=== PATIENT | female | born 1955 | race Caucasian/White ===

== ENCOUNTER 2019-04-08 11:25 | Inpatient (IN) | payer OTHER, MEDICAID ==
[~2019-04-08] VITALS: Ht 162.6 cm; Wt 71.2 kg
[2019-04-08 11:30] VITALS: BP_SYST 158
--- NOTE | 2019-04-08 11:30 | NUR ---
Patient to ER bed 8 to gown for evaluation. Side rails up.
--- NOTE | 2019-04-08 11:45 | NUR ---
pt arrives from [facility]. Pt arrives via BLS for uncontrolled shivering and diarrhea x 4 today. Pt is AAO x 2. Pt is due for HD today. HD access is on the right femoral. boat master placed. Will conitnue to monitor.
--- NOTE | 2019-04-08 11:48 | NUR ---
ER at bedside examining patient.
[2019-04-08] MEDS ORDERED: DIPHENOXYLATE HCL/ATROP SULF 2.5 MG TAB PO ONE (12:15)
[2019-04-08] MEDS ORDERED: KETOROLAC TROMETHAMINE 30 MG VIAL IVP ONE (12:15)
--- NOTE | 2019-04-08 13:00 | NUR ---
pt getting a CXR at the bedside.
[2019-04-08 13:18] LABS: BASOPHILS # (AUTO) 0.1 K/uL (0.0-0.2); BASOPHILS % (AUTO) 1.4 % (0.0-2.0); EOSINOPHILS # (AUTO) 0.3 K/uL (0.0-0.4); EOSINOPHILS % (AUTO) 3.3 % (0.0-4.0); HEMATOCRIT 31.9 % (36-48); HEMOGLOBIN 10.4 g/dL (12.0-16.0); LYMPHOCYTES # (AUTO) 2.8 K/uL (1.0-5.5); LYMPHOCYTES % (AUTO) 30.7 % (20.5-51.5); MEAN CORPUSCULAR HEMOGLOBIN 34 pg (27-31); MEAN CORPUSCULAR HGB CONC 33 % (32-36); MEAN CORPUSCULAR VOLUME 103 fL (79.0-98.0); MONOCYTES # (AUTO) 0.7 K/uL (0.0-1.0); MONOCYTES % (AUTO) 8.3 % (1.7-9.3); NEUTROPHILS # (AUTO) 5.1 K/uL (1.8-7.7); NEUTROPHILS % (AUTO) 56.3 % (40.0-70.0); PLATELET COUNT (AUTO) 316 K/uL (130-430); RED BLOOD CELL COUNT(AUTO) 3.08 MIL/uL (4.2-6.2); WHITE BLOOD COUNT (AUTO) 9.1 K/uL (4.8-10.8)
[2019-04-08 13:29] LABS: CALCIUM 8.9 mg/dL (8.4-11.0)
--- NOTE | 2019-04-08 13:30 | NUR ---
# 22 gauge angiocath placed to left bicep. Use of asceptic technique. Opsite placed over site. Blood return noted. Blood for lab drawn from site. Flushed with 10 cc of normal saline. No evidence of infiltration noted. Patient tolerated well.
[2019-04-08 13:32] LABS: CREATININE 8.07 mg/dL (0.55-1.30); POTASSIUM 6.4 mmol/L (3.5-5.1); PROTHROMBIN TIME 9.8 SECS (9.5-12.5)
--- NOTE | 2019-04-08 13:40 | NUR ---
medicated the pt w/ Toradol and Lomitol, per MD order.
[2019-04-08 13:45] LABS: ALBUMIN 3.3 g/dL (3.4-4.8); TOTAL BILIRUBIN 0.3 mg/dL (0.0-1.0)
--- NOTE | 2019-04-08 16:00 | NUR ---
# 24 gauge angiocath placed to left wrist. Use of asceptic technique. Opsite placed over site. Blood return noted. Blood for lab drawn from site. Flushed with 10 cc of normal saline. No evidence of infiltration noted. Patient tolerated well.
[2019-04-08] MEDS ORDERED: ESCI10TA PO (16:30)
[2019-04-08] MEDS ORDERED: VIT B PO (16:30)
[2019-04-08] MEDS ORDERED: ALPR0.5T PO (16:30)
[2019-04-08] MEDS ORDERED: METO50TA7 PO (16:30)
[2019-04-08] MEDS ORDERED: VITC PO (16:30)
[2019-04-08] MEDS ORDERED: SEVE800T8 PO (16:30)
[2019-04-08] MEDS ORDERED: ASPI-1153 PO (16:30)
[2019-04-08] MEDS ORDERED: FOLI-43 PO (16:30)
[2019-04-08] MEDS ORDERED: ALLO100T91 PO (16:30)
[2019-04-08] MEDS ORDERED: INSU100V11 SQ (16:30)
--- NOTE | 2019-04-08 16:30 | NUR ---
Dr. Bejarano speaking w/ the family and pt at the bedside.
--- NOTE | 2019-04-08 17:00 | NUR ---
MD ROUNDS SEEN BY DR. BOSCH AT BEDSIDE. Addendum: 04/08/19 at 1925 by Monique Barton RN TIME SEEN BY DR. BOSCH IS AT 1900 AND NOT 1700.
--- NOTE | 2019-04-08 17:00 | NUR ---
Medication reconciliation completed with information provided by pt's medical record. Any prior medication reconciliation on file was reviewed and corrected.
--- NOTE | 2019-04-08 17:13 | NUR ---
pt will be admitted under the care of Dr. Garcia, tele obs
[2019-04-08] MEDS ORDERED: DIPHENOXYLATE HCL/ATROP SULF 2.5 MG TAB PO PRN (17:15)
[2019-04-08 17:30] VITALS: BP_SYST 120
--- NOTE | 2019-04-08 17:30 | NUR ---
ADMISSION NOTE Received patient from ER via robbie, received report from CLEMENT HARDY. Patient admitted with diagnosis of FEVER, WEAKNESS, HYPERKALEMIA. Patient oriented to hospital routine, call light, toileting and safety-patient verbalized understanding.
--- NOTE | 2019-04-08 17:49 | NUR ---
Patient will be admitted to care of Dr. Garcia. Admitted to tele obs unit. Will go to room 119-a. Belongings list completed. Complete and up to date summary report printed. SBAR report to be given at bedside with opportunity for questions. Bedside report given to Neymar HARDY. IV is on the left wrist 24g patent and infusing well.
[2019-04-08 18:00] VITALS: BP_SYST 120
--- NOTE | 2019-04-08 18:27 | NUR ---
notes- pt in bed, awake, alert confused. family at bedside. denies any pain or discomfort. has mild tremors on her both arms at this time. has right groin dialysis access, dressing dry and intact. pt is unable to ambulate. Oriented to call light use. will monitor.
--- NOTE | 2019-04-08 18:31 | NUR ---
Nephro consult called: for Dr. Trotter, regarding hemodialysis, ordered by Dr. Garcia, spoke with
--- NOTE | 2019-04-08 19:30 | NUR ---
OPENING NOTE RECEIVED CARE OF PT AND SBAR REPORT. PT IS AWAKE AND CONFUSED, RESTING IN BED. PT'S DAUGHTER IS AT BEDSIDE. PT DENIES PAIN AT THIS TIME. BREATHING IS EVEN AND UNLABORED TO ROOM AIR. POC DISCUSSED WITH PT AND PT'S DAUGHTER. NO S/S OF ACUTE DISTRESS. SAFETY PRECAUTIONS ARE IN PLACE: BED IS LOCKED IN LOWEST POSITION, SIDE RAILS UP X3, BED ALARM ON, CALL LIGHT IS WITH PT. WILL CONT TO MONITOR.
[2019-04-08 20:00] VITALS: BP_SYST 126
[2019-04-08] MEDS: cefTRIAXone 1 GM IVPB PREMIX 50 ML IV SCH (20:48)
--- NOTE | 2019-04-08 20:48 | NUR ---
ROCEPHIN SCHEDULED ROCEPHIN ADMINISTERED ORDERED. NO S/S OF ADVERSE REACTION NOTED.
[2019-04-08] MEDS ORDERED: LORazepam 2 MG/ML VIAL IVP PRN (23:15)
--- NOTE | 2019-04-08 23:25 | NUR ---
AGITATION/ATIVAN ATIVAN 1 MG IVP ADMINISTERED FOR PT'S AGITATION ORDERED PRN. MEDICATION AND POTENTIAL SIDE EFFECTS EXPLAINED TO PT. PT CONFUSED. PT RECEIVING DIALYSIS AT THIS TIME. SAFETY PRECAUTIONS MAINTAINED. WILL MONITOR.
[2019-04-08] MEDS ORDERED: HEPARIN SODIUM,PORCINE 5000 UNITS/ML VIAL ONE (23:46)
--- NOTE | 2019-04-09 00:06 | NUR ---
RESTING PT RESTING IN BED, NO S/S OF ACUTE DISTRESS, BREATHING IS UNLABORED TO ROOM AIR. NO SIGN OF PAIN OR DISCOMFORT. SAFETY PRECAUTIONS ARE IN PLACE. CLOSE TO NURSES STATION. BED ALARM IS ON. WILL MONITOR. Addendum: 04/10/19 at 0412 by Iman Mckeon RN WRONG DATE. PLEASE DISREGARD.
[2019-04-09 00:26] VITALS: BP_SYST 102
--- NOTE | 2019-04-09 01:30 | NUR ---
DIALYSIS FINISHED 2 L OUT. PT TOLERATED WELL. VSS.
--- NOTE | 2019-04-09 03:40 | NUR ---
RESTING PT RESTING IN BED, NO S/S OF ACUTE DISTRESS, BREATHING IS UNLABORED TO ROOM AIR. NO SIGN OF PAIN OR DISCOMFORT. SAFETY PRECAUTIONS ARE IN PLACE. CLOSE TO NURSES STATION. BED ALARM IS ON. WILL MONITOR.
--- NOTE | 2019-04-09 06:00 | NUR ---
REFUSING IV START PT REFUSING TO HAVE IV STARTED. PT ATTEMPTS TO HIT AND KICK WHEN APPROACHED. EDUCATION PROVIDED REGARDING IMPORTANCE OF IV. PT STATES, "I DON'T NEED IT!". WILL CONTINUE REINFORCE TEACHING.
--- NOTE | 2019-04-09 06:29 | NUR ---
CLOSING NOTE PT IS AWAKE AND CONFUSED, RESTING IN BED. PT DENIES PAIN AT THIS TIME. BREATHING IS EVEN AND UNLABORED TO ROOM AIR. NO S/S OF ACUTE DISTRESS. SAFETY PRECAUTIONS ARE IN PLACE: BED IS LOCKED IN LOWEST POSITION, SIDE RAILS UP X3, BED ALARM ON, CALL LIGHT IS WITH PT. WILL ENDORSE PT CARE TO DAY SHIFT RN.
[2019-04-09 06:37] LABS: BASOPHILS # (AUTO) 0.1 K/uL (0.0-0.2); BASOPHILS % (AUTO) 1.5 % (0.0-2.0); EOSINOPHILS # (AUTO) 0.2 K/uL (0.0-0.4); HEMOGLOBIN 9.4 g/dL (12.0-16.0); LYMPHOCYTES # (AUTO) 2.3 K/uL (1.0-5.5); LYMPHOCYTES % (AUTO) 38.1 % (20.5-51.5); MEAN CORPUSCULAR HEMOGLOBIN 34 pg (27-31); MEAN CORPUSCULAR HGB CONC 33 % (32-36); MEAN CORPUSCULAR VOLUME 103 fL (79.0-98.0); MONOCYTES # (AUTO) 0.7 K/uL (0.0-1.0); MONOCYTES % (AUTO) 11.1 % (1.7-9.3); NEUTROPHILS # (AUTO) 2.8 K/uL (1.8-7.7); NEUTROPHILS % (AUTO) 45.3 % (40.0-70.0); PLATELET COUNT (AUTO) 249 K/uL (130-430); RED BLOOD CELL COUNT(AUTO) 2.73 MIL/uL (4.2-6.2); RED CELL DISTRIBUTION WIDTH 15.8 % (9.0-15.0); WHITE BLOOD COUNT (AUTO) 6.2 K/uL (4.8-10.8)
[2019-04-09 07:22] LABS: ALBUMIN 3.1 g/dL (3.4-4.8); CALCIUM 8.4 mg/dL (8.4-11.0); CREATININE 6.25 mg/dL (0.55-1.30); PHOSPHORUS 7.1 mg/dL (2.7-4.5); POTASSIUM 4.8 mmol/L (3.5-5.1); TOTAL BILIRUBIN 0.3 mg/dL (0.0-1.0)
[2019-04-09 08:00] VITALS: BP_SYST 168
--- NOTE | 2019-04-09 08:00 | NUR ---
Note Pt sitting up in bed eating her breakfast independently at this time. No SOB/resp distress or pain/discomfort noted at this time. Pt will not let RN start an IV at this time, pushes RN away and states she wants to be left alone. Tele unit attached and intact at this time. Pt next to nurses' station for close observation for needs and care. Call light within reach.
[2019-04-09] MEDS: INSULIN GLARGINE 100 UNITS/ML 10 ML VIAL SQ SCH (08:15)
[2019-04-09] MEDS ORDERED: SEVELAMER CARBONATE 800 MG TABLET PO ONE (08:15)
[2019-04-09] MEDS ORDERED: CITALOPRAM HYDROBROMIDE 20 MG TABLET PO SCH (08:15)
[2019-04-09] MEDS ORDERED: ALLOPURINOL 100 MG TABLET (ZYLOPRIM) PO ONE (08:15)
[2019-04-09] MEDS ORDERED: ALPRAZolam 0.25 MG TABLET PO ONE (08:15)
[2019-04-09] MEDS ORDERED: METOPROLOL SUCCINATE 50 MG TAB.SR.24H (TOPROL XL) PO ONE (08:15)
[2019-04-09] MEDS ORDERED: FOLIC ACID 1 MG TABLET PO ONE (08:15)
[2019-04-09] MEDS ORDERED: CITALOPRAM HYDROBROMIDE 20 MG TABLET PO ONE (08:15)
[2019-04-09] MEDS ORDERED: ASPIRIN 81 MG TABLET(ECOTRIN) PO ONE (08:15)
[2019-04-09] MEDS ORDERED: INSULIN GLARGINE 100 UNITS/ML 10 ML VIAL SQ ONE (08:30)
[2019-04-09] MEDS: CITALOPRAM HYDROBROMIDE 20 MG TABLET PO SCH (08:52)
[2019-04-09] MEDS: FOLIC ACID 1 MG TABLET PO SCH (08:53)
[2019-04-09] MEDS: ALLOPURINOL 100 MG TABLET (ZYLOPRIM) PO SCH (08:53)
[2019-04-09] MEDS: ALPRAZolam 0.25 MG TABLET PO SCH (08:54)
[2019-04-09] MEDS: ASPIRIN 81 MG TABLET(ECOTRIN) PO SCH (08:54)
[2019-04-09] MEDS ORDERED: ALPRAZolam 0.25 MG TABLET PO SCH (09:00)
--- NOTE | 2019-04-09 09:58 | NUR ---
Nutrition Update Husam Scale 15 noted. Pt admitted for fever, weakness, hyperkalemia. Diet: CCHO standard carb-60 gm, renal BMI: 26.8 kg/m2 RD to follow per nutrition care standards.
--- NOTE | 2019-04-09 10:40 | NUR ---
Note Pt's daughter at bedside and update on pt's status given. Notified pt's daughter Cybrina Marin that pt will not let RN start a new IV and is aggressive when staff needs to do hygiene care and take vital signs. Pt drowsy and sleepy at this time. Pt's daughter left the bedside and stated staff could call her at any time for pt or MD tests and procedures. No needs noted at this time. Call light within reach.
[2019-04-09 12:15] VITALS: BP_SYST 144
--- NOTE | 2019-04-09 12:30 | NUR ---
Note Pt resting in bed - sleeping. No needs noted. Call light within reach.
--- NOTE | 2019-04-09 16:05 | NUR ---
Note Pt is anuric - no voiding noted all shift.
[2019-04-09 16:39] VITALS: BP_SYST 129
[2019-04-09] MEDS: SEVELAMER CARBONATE 800 MG TABLET PO SCH (17:31)
--- NOTE | 2019-04-09 18:10 | NUR ---
Note Pt sitting up in bed eating her dinner. Pt was checked on q1' and PRN all shift for needs and care. Pt's daughter Ranjit has been at bedside most of the afternoon. No SOB/resp distress or pain/discomfort noted at this time. Pt still will not let RN start new IV all shift. No needs noted at this time. Call light within reach.
--- NOTE | 2019-04-09 19:30 | NUR ---
OPENING NOTE RECEIVED CARE OF PT AND SBAR REPORT. PT IS AWAKE AND CONFUSED, RESTING IN BED. PT DENIES PAIN AT THIS TIME. BREATHING IS EVEN AND UNLABORED TO ROOM AIR. NO S/S OF ACUTE DISTRESS. PT REFUSES TO HAVE IV STARTED. SAFETY PRECAUTIONS ARE IN PLACE: BED IS LOCKED IN LOWEST POSITION, SIDE RAILS UP X3, BED ALARM ON, CALL LIGHT IS WITH PT, CLOSE TO NURSES STATION. WILL CONT TO MONITOR.
[2019-04-09 20:00] VITALS: BP_SYST 138
[2019-04-09] MEDS: cefTRIAXone 1 GM IVPB PREMIX 50 ML IV SCH (20:24)
[2019-04-09] MEDS: METOPROLOL SUCCINATE 50 MG TAB.SR.24H (TOPROL XL) PO SCH (20:26)
--- NOTE | 2019-04-09 20:26 | NUR ---
MED PASS PT AGREEABLE TO TAKING TOPROL MEDICATION. PT SWALLOWED MEDICATION WITH NO PROBLEM. VSS. MEDICATION AND POTENTIAL SIDE EFFECTS DISCUSSED, PT CONFUSED. NO S/S OF ACUTE DISTRESS. SAFETY MAINTAINED. WILL MONITOR.
--- NOTE | 2019-04-09 22:15 | NUR ---
RN ROUNDS: PT AWAKE IN BED WATCHING TELEVISION. PT CALM AT THIS TIME. NO S/S OF DISTRESS. PT DENIES PAIN AT THIS TIME. SAFETY AND FALL PRECAUTIONS ARE IN PLACE. CALL LIGHT IS WITH PT. WILL CONT TO MONITOR.
[2019-04-10 00:18] VITALS: BP_SYST 134
--- NOTE | 2019-04-10 02:40 | NUR ---
SLEEPING PT RESTING IN BED, NO S/S OF ACUTE DISTRESS, BREATHING IS EVEN AND UNLABORED. PT APPEARS COMFORTABLE. SAFETY PRECAUTIONS MAINTAINED. WILL MONITOR.
--- NOTE | 2019-04-10 04:15 | NUR ---
SLEEPING PT RESTING IN BED, NO S/S OF ACUTE DISTRESS, BREATHING IS EVEN AND UNLABORED. PT APPEARS COMFORTABLE. SAFETY PRECAUTIONS MAINTAINED. WILL MONITOR.
[2019-04-10] MEDS: INSULIN GLARGINE 100 UNITS/ML 10 ML VIAL SQ SCH (06:20)
--- NOTE | 2019-04-10 06:20 | NUR ---
REFUSED BLOOD SUGAR CHECK/LANTUS DESPITE EDUCATION. PT PUT THE BLANKET OVER HER HEAD AND STATED, "NO!"
--- NOTE | 2019-04-10 06:58 | NUR ---
CLOSING NOTE PT IS RESTING IN BED CONFUSED.PT DENIES PAIN AT THIS TIME. BREATHING IS EVEN AND UNLABORED TO ROOM AIR. NO S/S OF ACUTE DISTRESS. SAFETY PRECAUTIONS ARE IN PLACE: BED IS LOCKED IN LOWEST POSITION, SIDE RAILS UP X3, BED ALARM ON, CALL LIGHT IS WITH PT. WILL ENDORSE PT CARE TO DAY SHIFT RN.
[2019-04-10 07:32] LABS: CALCIUM 8.4 mg/dL (8.4-11.0)
[2019-04-10 07:35] VITALS: BP_SYST 147
--- NOTE | 2019-04-10 07:35 | NUR ---
Opening note patient resting in bed, a/o1- reoriented to place, time and event, patient denies pain, assessment complete, right groin permacath dressing clean, dry and intact, educated the patient client insights consultant light system and to call for any help, she verbalizes understanding, bed in lowest position, three side rails up, bed alarm on, bed close to nursing station, fall and aspiration precautions in place.
[2019-04-10 07:46] LABS: BASOPHILS # (AUTO) 0.1 K/uL (0.0-0.2); BASOPHILS % (AUTO) 0.9 % (0.0-2.0); EOSINOPHILS # (AUTO) 0.4 K/uL (0.0-0.4); EOSINOPHILS % (AUTO) 5.8 % (0.0-4.0); HEMATOCRIT 29.9 % (36-48); HEMOGLOBIN 9.8 g/dL (12.0-16.0); LYMPHOCYTES # (AUTO) 3.4 K/uL (1.0-5.5); LYMPHOCYTES % (AUTO) 52.5 % (20.5-51.5); MEAN CORPUSCULAR HEMOGLOBIN 35 pg (27-31); MEAN CORPUSCULAR HGB CONC 33 % (32-36); MEAN CORPUSCULAR VOLUME 105 fL (79.0-98.0); MONOCYTES # (AUTO) 0.9 K/uL (0.0-1.0); NEUTROPHILS # (AUTO) 1.7 K/uL (1.8-7.7); NEUTROPHILS % (AUTO) 26.8 % (40.0-70.0); PLATELET COUNT (AUTO) 261 K/uL (130-430); RED BLOOD CELL COUNT(AUTO) 2.85 MIL/uL (4.2-6.2); RED CELL DISTRIBUTION WIDTH 15.9 % (9.0-15.0); WHITE BLOOD COUNT (AUTO) 6.4 K/uL (4.8-10.8)
[2019-04-10 08:03] LABS: CREATININE 7.92 mg/dL (0.55-1.30); POTASSIUM 6.2 mmol/L (3.5-5.1)
[2019-04-10] MEDS: ASPIRIN 81 MG TABLET(ECOTRIN) PO SCH (08:19)
[2019-04-10] MEDS: ALPRAZolam 0.25 MG TABLET PO SCH (08:20)
[2019-04-10] MEDS: FOLIC ACID 1 MG TABLET PO SCH (08:20)
[2019-04-10] MEDS: ALLOPURINOL 100 MG TABLET (ZYLOPRIM) PO SCH (08:20)
[2019-04-10] MEDS: CITALOPRAM HYDROBROMIDE 20 MG TABLET PO SCH (08:20)
[2019-04-10] MEDS: METOPROLOL SUCCINATE 50 MG TAB.SR.24H (TOPROL XL) PO SCH ×2 (08:20→20:47)
[2019-04-10] MEDS: SEVELAMER CARBONATE 800 MG TABLET PO SCH ×2 (08:20→18:14)
--- NOTE | 2019-04-10 08:25 | NUR ---
Medication patient resting in bed, denies pain, administered AM medications per MD orders, patient tolerated well, provided with jello and applesauce per her request, no other needs at this time, bed in lowest position, three side rails up, bed alarm on, bed close to nursing station, fall and aspiration precautions in place.
[2019-04-10] MEDS ORDERED: SODIUM POLYSTYRENE SULFONATE 15 GM/60 ML UDBTL PO ONE ×2 (09:15→21:00)
--- NOTE | 2019-04-10 10:30 | NUR ---
RN rounds/Hemodialysis patient resting in bed, eyes closed, breathing is even and unlabored, no signs of distress, easy to wake, informed her that Hemodialysis nurse is her to do dialysis, patient verbalized understanding, no needs at this time, continuing to monitor, bed in lowest position, three side rails up, bed alarm on, bed close to nursing station, fall and aspiration precautions in place.
[2019-04-10 12:00] VITALS: BP_SYST 148
[2019-04-10] MEDS ORDERED: HEPARIN SODIUM,PORCINE 5000 UNITS/ML VIAL MC ONE (12:15)
--- NOTE | 2019-04-10 12:30 | NUR ---
RN rounds patient resting in bed, awake, denies pain, tolerating hemodialysis at this time, bed in lowest position, three side rails up, bed alarm on, bed close to nursing station, fall and aspiration precautions in place.
--- NOTE | 2019-04-10 13:25 | NUR ---
Hemodialysis complete/Rounds patient resting in bed, eyes closed, breathing is even and unlabored, opens eyes to voice, no distress, hemodialysis complete at this time, 1.5L out, continuing to monitor the patient, bed in lowest position, three side rails up, bed alarm on, bed close to nursing station, fall and aspiration precautions in place.
--- NOTE | 2019-04-10 13:50 | NUR ---
Spoke with Dr. Garcia clarifying order for Kayexalate, informed MD that patient has Hemodialysis already today - okay to not given Kayexalate per MD. Informed MD of decreased blood pressure post hemodialysis SBP 101 at this time - continue to monitor per MD. Orders received for BMP draw at 1800 today, orders placed, will follow up. Also informed MD that patient is under observation status currently - received order to change admit orders from observation service to inpatient at this time, orders placed, called Admitting to inform- spoke with Zaria.
[2019-04-10 14:16] VITALS: BP_SYST 93
--- NOTE | 2019-04-10 15:52 | NUR ---
RN rounds patient resting in bed, awake, denies pain, provided with turkey sandwich and coffee per her request, aspiration precautions in place, no other needs at this time, continuing to monitor, bed in lowest position, three side rails up, bed alarm on, bed close to nursing station, fall and aspiration precautions in place.
[2019-04-10 17:19] VITALS: BP_SYST 124
--- NOTE | 2019-04-10 18:17 | NUR ---
RN rounds/Medication patient resting in bed, awake, eating dinner, aspiration precautions in place, educated on medication uses and potential side effects, she verbalized understanding and tolerated well, no other needs at this time, bed in lowest position, three side rails up, bed alarm on, bed close to nursing station, fall and aspiration precautions in place. Production Control Coordinating Clerk at bedside for 1800 BMP.
--- NOTE | 2019-04-10 18:33 | NUR ---
Closing note patient resting in bed, awake, denies pain, all needs met, will endorse report to NOC shift nurse, bed in lowest position, three side rails up, bed alarm on, bed close to nursing station, fall and aspiration precautions in place, call light placed within reach.
[2019-04-10 18:47] LABS: CALCIUM 7.7 mg/dL (8.4-11.0); CREATININE 5.87 mg/dL (0.55-1.30); POTASSIUM 5.4 mmol/L (3.5-5.1)
--- NOTE | 2019-04-10 19:20 | NUR ---
CHANGE OF SHIFT; pt. sleeping when received, no acute distress. on fall risk precauitons, bed alarm on. pt. room close to nurses station. no IV access. will reassess later.
--- NOTE | 2019-04-10 19:45 | NUR ---
PAGED I PAGED DR. BOSCH I SPOKE WITH INESS EXCHANGE
--- NOTE | 2019-04-10 20:00 | NUR ---
NOTES: asked count room clerk to call Dr. Trotter for post dialysis BMP.waiting to call back. pt. confused and disoriented, but follows command. VS checked. no Iv access, pt. has refused to put one in. on cloth designer and shows sinus rhythm. able to move all extremities.o fall risk precautions. daughter was here earlier.pt. anuric.
[2019-04-10 20:15] VITALS: BP_SYST 108
--- NOTE | 2019-04-10 20:20 | NUR ---
PAGED: SECOND PAGED FOR DR. BOSCH I SPOKE WITH INESS EXCHANGE
--- NOTE | 2019-04-10 20:29 | NUR ---
HIRO CAROLINA CALLED BACK
--- NOTE | 2019-04-10 20:30 | NUR ---
NOTES; Dr. Trotter called back and informed result, K still up 5. 4, ordered Kayexalate po.
[2019-04-10] MEDS: cefTRIAXone 1 GM IVPB PREMIX 50 ML IV SCH (20:46)
--- NOTE | 2019-04-10 22:07 | NUR ---
NOTES: pt. forgetful, given sandwich and jello earlier and said I did not give her anything. due med. taken and given another sandwich and jello, needs attended.
--- NOTE | 2019-04-11 00:05 | NUR ---
NOTES: pt. called and had a large soft pasty brown stool from the Kayexalate, ken care done able to help turn to sides.
[2019-04-11 01:24] VITALS: BP_SYST 99
--- NOTE | 2019-04-11 03:11 | NUR ---
NOTES: condition unchanged. pt. sleeping.
--- NOTE | 2019-04-11 06:00 | NUR ---
NOTES: pt. been sleeping and woke up telling me she is hungry, informed need to wait for breakfast, had 2 sandwiches last night and jellos. no other complain. another bm this am, ken care done by [facility]IO.
--- NOTE | 2019-04-11 06:47 | NUR ---
CLOSING NOTES; pt. still sleeping, no acute distress. for further care and assist. blood draw this am.
[2019-04-11 06:57] LABS: CALCIUM 7.8 mg/dL (8.4-11.0); CREATININE 6.63 mg/dL (0.55-1.30); POTASSIUM 5.1 mmol/L (3.5-5.1)
[2019-04-11] MEDS: INSULIN GLARGINE 100 UNITS/ML 10 ML VIAL SQ SCH (07:04)
[2019-04-11 07:30] VITALS: BP_SYST 112
--- NOTE | 2019-04-11 07:32 | NUR ---
AM ROUNDS: Patient is awake, resting in bed, alert , oriented name and place. Patient denies pain. Right groin permacath dressing clean, dry and intact. Call light within reach, instructed to use when in need of help, verbalizes understanding. B ed in lowest position, side rails up x3, bed alarm on, fall and aspiration precautions in place.
[2019-04-11] MEDS: SEVELAMER CARBONATE 800 MG TABLET PO SCH (09:07)
[2019-04-11] MEDS: ALLOPURINOL 100 MG TABLET (ZYLOPRIM) PO SCH (09:07)
[2019-04-11] MEDS: ASPIRIN 81 MG TABLET(ECOTRIN) PO SCH (09:07)
[2019-04-11] MEDS: ALPRAZolam 0.25 MG TABLET PO SCH (09:07)
[2019-04-11] MEDS: CITALOPRAM HYDROBROMIDE 20 MG TABLET PO SCH (09:08)
[2019-04-11] MEDS: FOLIC ACID 1 MG TABLET PO SCH (09:08)
[2019-04-11] MEDS: METOPROLOL SUCCINATE 50 MG TAB.SR.24H (TOPROL XL) PO SCH (09:09)
[2019-04-11] MEDS ORDERED: CIPROFLOXACIN HCL 500 MG TABLET PO SCH (10:00)
--- NOTE | 2019-04-11 10:48 | NUR ---
Discharge Planning: DCP faxed pt referral to [facility] (f [phone] p [phone]) DCP to follow up Addendum: 04/11/19 at 1200 by Concepcion Keys DP [facility] (f [phone] p [phone]) DCP spoke to [facility] patient will go to [facility], DCP made nurse aware. Addendum: 04/11/19 at 1311 by Concepcion Keys DP [facility] (f [phone] p [phone]) Rm [facility], transportation arranged with [facility] ([phone]) 3:00pm P/U. Nurse made aware patient packet taken to nurse station.
[2019-04-11 11:24] VITALS: BP_SYST 136
[2019-04-11 12:29] VITALS: BP_SYST 136
--- NOTE | 2019-04-11 13:30 | NUR ---
Report: Report given to ANTONY Morse.
--- NOTE | 2019-04-11 14:00 | NUR ---
DCPA and SS contact DELI COOK met with Pt. at bed side to conduct a DCPA. Pt. is residing at [facility] in [place] [phone]. Person to notify in chart is daughter Chrissy Bazzi [phone]. Pt. baseline is somewhat confused, she is moderate assist, utilizes a wheelchair for mobility. She has [employer] and Medicare Part A ad B and consulted with ANTONY Murdock, who indicated Pt. is being DC today after 3PM back to [facility]. DELI COOK contacted [facility], Pt. has room number is 24 A and will be expected to arrive this afternoon. No social service inquiry needed at this time. DCP/ SS/ CM will remain available as needed.
--- NOTE | 2019-04-11 15:11 | NUR ---
Discharge: Discharged to [facility] with [facility].
== END 2019-04-11 15:07 | DRG 391 ==
LOC: SED 11:25 → INTOOBSV 17:06 → STU 17:06 → OBSVTOIN 04-10 13:54
PROVIDERS: ADMIT Internal Medicine; ATTEND Internal Medicine
PROC: 5A1D70Z Performance of Urinary Filtration, Intermittent, Less than 6 Hours Per Day (ICD-10-PCS; principal; 2019-04-10)
DX: K52.9 Noninfective gastroenteritis and colitis, unspecified (principal); N18.6 End stage renal disease; I13.2 Hypertensive heart and chronic kidney disease with heart failure and with stage 5 chronic kidney disease, or end stage renal disease; I48.20 Chronic atrial fibrillation, unspecified; E10.22 Type 1 diabetes mellitus with diabetic chronic kidney disease; E87.5 Hyperkalemia; D63.1 Anemia in chronic kidney disease; E78.5 Hyperlipidemia, unspecified; F03.90 Unspecified dementia, unspecified severity, without behavioral disturbance, psychotic disturbance, mood disturbance, and anxiety; F20.9 Schizophrenia, unspecified; F32.9 Major depressive disorder, single episode, unspecified; F41.9 Anxiety disorder, unspecified; G25.3 Myoclonus; M10.9 Gout, unspecified; I25.10 Atherosclerotic heart disease of native coronary artery without angina pectoris; I50.9 Heart failure, unspecified; K57.90 Diverticulosis of intestine, part unspecified, without perforation or abscess without bleeding; Z79.4 Long term (current) use of insulin; Z91.15 Patient's noncompliance with renal dialysis; Z99.2 Dependence on renal dialysis; Z91.19 Patient's noncompliance with other medical treatment and regimen; Z79.899 Other long term (current) drug therapy; Z79.82 Long term (current) use of aspirin; Z79.01 Long term (current) use of anticoagulants
CPT/HCPCS: 36415; 71045; 80048; 80053; 82962; 83036; 83605; 83735-TC; 84100-TC; 84484; 85025; 85610-TC; 85730-TC; 87040-TC; 87081; 90935; 90937; 93005; 96374; 99285; G0378; J0696; J1644; J1815; J1885; J2060; J7030; J7050